=== PATIENT | female | born 1955 ===

== ENCOUNTER → 2020-08-31 | Outpatient (CLI) | payer OTHER ==
[2020-08-31 19:37] LABS: Source, Urine Clean Catch
[2020-08-31 19:41] LABS: Appearance, Urine Clear (Clear); Bilirubin, Urine Neg (Neg); Blood, Urine 1+ (Neg); Color, Urine Amber (P-Yellow); Glucose Qualitative, Urine 4+ (Neg); Ketones, Urine Neg (Neg); Leukocyte Esterase, Urine 2+ (Neg); Nitrite, Urine Pos (Neg); Protein, Urine Neg (Neg); Specific Gravity, Urine 1.015 (1.003-1.022); Urobilinogen, Urine 1+ (Normal)
[2020-08-31 19:53] LABS: Bacteria Mod /hpf; Red Blood Cells, Urine 0-2 /hpf (0-2); Squamous Epithelial Cells Rare /hpf (Few); White Blood Cells, Urine 25-50 /hpf (0-5)
== END | disposition home or self-care (01) ==
LOC: LAB SHORT 17:30 → LAB 17:30
PROVIDERS: Family Medicine
DX: R35.0 Frequency of micturition (principal)
CPT/HCPCS: 81001; 87077; 87086; 87186

== ENCOUNTER 2021-02-28 22:32 | Observation (INO) | payer OTHER ==
[~2021-02-28] VITALS: Ht 147.3 cm; Wt 85.2 kg
[2021-02-28] MEDS ORDERED: SITA25T2 PO (22:46)
[2021-02-28] MEDS ORDERED: GLIP10 PO (22:47)
[2021-02-28] MEDS ORDERED: NITR.4SL SL (22:47)
[2021-02-28] MEDS ORDERED: PRAV20 PO (22:47)
[2021-02-28] MEDS ORDERED: NEURONTIN300 MG PO (22:47)
[2021-02-28] MEDS ORDERED: ASPIR 8181 M1 PO (22:48)
[2021-02-28 23:29] LABS: BASOPHILS ABSOLUTE AUTO 0.08 K/mm3 (0.00-0.23); BASOPHILS PERCENT AUTO 1 % (0-2); EOSINOPHILS ABSOLUTE AUTO 0.26 K/mm3 (0.00-0.68); EOSINOPHILS PERCENT AUTO 2 % (0-6); Hematocrit 38.4 % (33.0-51.0); Hemoglobin 12.8 g/dL (11.5-16.0); IMMATURE GRAN ABSOLUTE AUTO 0.03 K/mm3 (0.00-0.10); IMMATURE GRAN PERCENT AUTO 0 % (0-1); LYMPHOCYTES ABSOLUTE AUTO 4.43 K/mm3 (0.84-5.20); LYMPHOCYTES PERCENT AUTO 37 % (21-46); MONOCYTES ABSOLUTE AUTO 0.67 K/mm3 (0.16-1.47); MONOCYTES PERCENT AUTO 6 % (4-13); Mean Corpuscular HGB 29.6 pg (26.0-34.0); Mean Corpuscular HGB Conc 33.3 g/dL (31.5-36.5); Mean Corpuscular Volume 89 fL (80-100); Mean Platelet Volume 9.4 fL (9.1-12.4); NEUTROPHILS ABSOLUTE AUTO 6.63 K/mm3 (1.96-9.15); NEUTROPHILS PERCENT AUTO 55 % (41-73); Platelet Count 244 K/mm3 (150-400); RDW Coefficient Variation 11.8 % (11.7-14.2); RDW Standard Deviation 38.2 fL (35.1-46.3); Red Blood Cell Count 4.33 M/mm3 (3.80-5.20)
[2021-02-28 23:46] LABS: Alanine Aminotransfer (ALT/SGP 22 U/L (12-78); Albumin/Globulin Ratio 1.1 (0.8-1.8); Alk Phos 110 U/L (50-136); Anion Gap 4 mmol/L (6-16); Aspartate Aminotrans (AST/SGOT 17 U/L (12-37); Bilirubin, Total 0.3 mg/dL (0.1-1.0); Blood Urea Nitrogen 28 mg/dL (8-24); Bun/Creatinine Ratio 28.7 (12.0-20.0); CO2, Blood 27 mmol/L (21-32); Chloride, Blood 106 mmol/L (98-108); Creatinine, Blood 0.98 mg/dL (0.40-1.00); Globulin, Blood 3.8 g/dL (2.2-4.0); Glomerular Filtration Rate >60 (60-); Glucose, Blood 105 mg/dL (70-99); Potassium, Blood 4.1 mmol/L (3.5-5.5); Sodium, Blood 137 mmol/L (136-145); Total Protein, Blood 7.8 g/dL (6.4-8.2); Troponin I <0.015 ng/mL (0.000-0.040)
--- NOTE | 2021-03-01 02:30 | NUR ---
RECEIVED REPORT FROM TROY ALVARES RN. PT TRANSPORTED TO MEDICAL FLOOR VIA W/C, AMBULATED SELF TO BED, STEADY GAIT. DENIES DIZZINESS, FEELINGS OF SYNCOPE. ORIENTED TO ROOM/UNIT, VS AND WT TAKEN. JEWEL BEARING POLISHER PLACED, HR TRENDING SINUS BRADYCARDIA, HR OF 47, PT ASYMPTOMATIC. BROUGHT PT ICE CHIPS. DENIES CP/PRESSURE/SOB AT THIS TIME. CALL LIGHT, POSSESSIONS IN REACH.
[2021-03-01 05:29] LABS: BASOPHILS ABSOLUTE AUTO 0.06 K/mm3 (0.00-0.23); BASOPHILS PERCENT AUTO 1 % (0-2); EOSINOPHILS ABSOLUTE AUTO 0.21 K/mm3 (0.00-0.68); EOSINOPHILS PERCENT AUTO 2 % (0-6); Hemoglobin 11.6 g/dL (11.5-16.0); IMMATURE GRAN ABSOLUTE AUTO 0.02 K/mm3 (0.00-0.10); IMMATURE GRAN PERCENT AUTO 0 % (0-1); LYMPHOCYTES ABSOLUTE AUTO 3.28 K/mm3 (0.84-5.20); LYMPHOCYTES PERCENT AUTO 37 % (21-46); MONOCYTES ABSOLUTE AUTO 0.49 K/mm3 (0.16-1.47); MONOCYTES PERCENT AUTO 6 % (4-13); Mean Corpuscular HGB Conc 34.1 g/dL (31.5-36.5); Mean Corpuscular Volume 88 fL (80-100); Mean Platelet Volume 9.1 fL (9.1-12.4); NEUTROPHILS ABSOLUTE AUTO 4.77 K/mm3 (1.96-9.15); NEUTROPHILS PERCENT AUTO 54 % (41-73); Platelet Count 196 K/mm3 (150-400); RDW Coefficient Variation 11.9 % (11.7-14.2); RDW Standard Deviation 38.3 fL (35.1-46.3); Red Blood Cell Count 3.87 M/mm3 (3.80-5.20); White Blood Cell Count 8.83 K/mm3 (4.00-11.30)
--- NOTE | 2021-03-01 05:31 | NUR ---
AGRICULTURAL RESEARCH TECHNICIAN SUMMARY PT RESTING, IN NO ACUTE DISTRESS. NO ACUTE CHANGES SINCE ARRIVAL TO MEDICAL FLOOR, VS REVIEWED,WNL. HR TRENDING SINUS BRADYCARDIA, HR 48 PER PARKING METER ATTENDANT. BP'S STABLE. NO C/O CP, PRESSURE, SOB. AWAITING STRESS TEST TODAY. CALL LIGHT AND POSSESSIONS IN REACH. WILL CONTINUE TO PROVIDE CARE AND REPORT OFF TO ONCOMING RN.
[2021-03-01 05:53] LABS: Anion Gap 4 mmol/L (6-16); Blood Urea Nitrogen 26 mg/dL (8-24); Bun/Creatinine Ratio 27.1 (12.0-20.0); CO2, Blood 27 mmol/L (21-32); Calcium, Blood 8.3 mg/dL (8.5-10.1); Chloride, Blood 106 mmol/L (98-108); Creatinine, Blood 0.96 mg/dL (0.40-1.00); Glomerular Filtration Rate >60 (60-); Glucose, Blood 106 mg/dL (70-99); Potassium, Blood 3.8 mmol/L (3.5-5.5); Sodium, Blood 137 mmol/L (136-145); Troponin I <0.015 ng/mL (0.000-0.040)
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
--- NOTE | 2021-03-01 13:51 | NUR ---
Spiritual care visit conducted. Many family members are present and supporting each other. I conduct a life review and provide prayer then step out as calls are being made and other family members are still arriving. I come back prior to extubation and from that time until TOD I provide encouragement, scripture reading, soft comforting guitar music and prayer (prayer after TOD). Family responds well and shows signs of being comforted.
--- NOTE | 2021-03-01 16:53 | NUR ---
ADMIT: 03/01/21 DISCHARGE: DX: CP CC: paolo OFEL[facility] CALL: pt at home (1wk with PCP/OFELIA) RESIDENCE: home CAREGIVER: Akua Forrester, Friend DX: chronic chest pain, HTN, anxiety, hyperlipidemia, see list DME: none CCM: none HOME HEALTH: none SUMMARY: Admit: 03/01/21 03/01/21- per chart review, pt is going to need stress test prior to discharge. This had not been completed by this afternoon. Pt can go home either Thu or Thursday depending on medically stable. -lylyw
--- NOTE | 2021-03-01 17:43 | NUR ---
SHIFT SUMMARY PT DENIED CHEST PAIN, STATES THERE IS A MILD PRESSURE AT TIMES. HAD STRESS TEST DONE THIS SHIFT, AWAITING RESULTS TO COME INTO COMPUTER. INDEP IN ROOM, CONTINENT IN BATHROOM. TELE SHOWING SINUS LUCAS. CALL LIGHT IN REACH, WCTM
[2021-03-01] MEDS ORDERED: SITA25T2 PO (18:32)
[2021-03-01] MEDS ORDERED: HYDCHL25 PO (18:35)
[2021-03-01] MEDS ORDERED: LISI20 PO (18:35)
--- NOTE | 2021-03-02 06:42 | NUR ---
SHIFT SUMMARY PT IS A 65 Y/O FEMALE, ADMITTED FOR CP. SHE IS A&O X 4, INDEPENDENT IN THE ROOM. PT WAS MEDICATED AT CHANGE OF SHIFT FOR A HEADACHE, WHICH WAS RESOLVED WITH PRN TYLENOL. PER TELE, HR WAS LOW IN THE 50S WHILE AWAKE, AND DOWN TO THE 40S WHILE SLEEPING. VITAL SIGNS OTHERWISE STABLE. PT DENIED ANY CHEST PAIN OR PRESSURE, SOB OR NAUSEA. NO ACUTE CHANGES IN PT CONDITION NOTED. WILL CONTINUE TO MONITOR AND TREAT PER EMAR UNTIL HAND OFF TO DAY SHIFT RN.
--- NOTE | 2021-03-02 12:16 | NUR ---
echocardiogram complete
--- NOTE | 2021-03-02 17:56 | NUR ---
DISCHARGE SUMMARY JADEN IS LEAVING BY CAR TO GO HOME. PIV REMOVED, PAPERWORK REVIEWED. NO NEW MEDS TO FAX TO PHARMACY. [facility] WILL CALL HER TO SCHEDULE F/U APPT AND GO OVER ECHO RESULTS ONCE THEY ARE IN THE COMPUTER.
== END 2021-03-02 18:07 | disposition home or self-care (01) ==
LOC: ER 22:32 → MEDS 22:33 → ER 03-01 00:56 → MEDS 03-01 02:40
PROVIDERS: Emergency Medicine; ADMIT Family Medicine
DX: R07.9 Chest pain, unspecified (principal); I10 Essential (primary) hypertension; E78.5 Hyperlipidemia, unspecified; I20.9 Angina pectoris, unspecified; E11.40 Type 2 diabetes mellitus with diabetic neuropathy, unspecified; R00.1 Bradycardia, unspecified; E66.9 Obesity, unspecified; Z68.37 Body mass index [BMI] 37.0-37.9, adult; Z79.84 Long term (current) use of oral hypoglycemic drugs
CPT/HCPCS: 36415; 71045; 78452; 80048; 80053; 82947; 83690; 83735; 84484; 85025; 93005; 93010; 93017; 93306; 96372; 99285-25; A9270; A9500; G0378; J0280; J1650; J1815; J2785

== ENCOUNTER 2021-05-26 13:07 | Observation (INO) | payer OTHER ==
[~2021-05-26] VITALS: Ht 147.3 cm; Wt 81.2 kg
[~2021-05-26 13:07] MED LIST: ASPIR 8181 M1 PO; GLIP10 PO; HYDCHL25 PO; LISI20 PO; NEURONTIN300 MG PO; NITR.4SL SL; PRAV20 PO; SITA25T2 PO
[2021-05-26 14:05] LABS: BASOPHILS ABSOLUTE AUTO 0.07 K/mm3 (0.00-0.23); BASOPHILS PERCENT AUTO 1 % (0-2); EOSINOPHILS PERCENT AUTO 2 % (0-6); Hematocrit 35.2 % (33.0-51.0); Hemoglobin 12.4 g/dL (11.5-16.0); IMMATURE GRAN ABSOLUTE AUTO 0.02 K/mm3 (0.00-0.10); IMMATURE GRAN PERCENT AUTO 0 % (0-1); LYMPHOCYTES PERCENT AUTO 32 % (21-46); MONOCYTES PERCENT AUTO 6 % (4-13); Mean Corpuscular HGB 30.8 pg (26.0-34.0); Mean Corpuscular HGB Conc 35.2 g/dL (31.5-36.5); Mean Corpuscular Volume 88 fL (80-100); Mean Platelet Volume 9.1 fL (9.1-12.4); NEUTROPHILS ABSOLUTE AUTO 4.86 K/mm3 (1.96-9.15); NEUTROPHILS PERCENT AUTO 58 % (41-73); Platelet Count 272 K/mm3 (150-400); RDW Coefficient Variation 12.2 % (11.7-14.2); RDW Standard Deviation 39.2 fL (35.1-46.3); Red Blood Cell Count 4.02 M/mm3 (3.80-5.20); White Blood Cell Count 8.35 K/mm3 (4.00-11.30)
[2021-05-26 14:26] LABS: Alanine Aminotransfer (ALT/SGP 23 U/L (12-78); Albumin, Blood 4.1 g/dL (3.4-5.0); Albumin/Globulin Ratio 1.1 (0.8-1.8); Alk Phos 88 U/L (50-136); Anion Gap 5 mmol/L (6-16); Aspartate Aminotrans (AST/SGOT 16 U/L (12-37); Bilirubin, Total 0.3 mg/dL (0.1-1.0); Blood Urea Nitrogen 25 mg/dL (8-24); Bun/Creatinine Ratio 25.4 (12.0-20.0); CO2, Blood 27 mmol/L (21-32); Calcium, Blood 9.7 mg/dL (8.5-10.1); Chloride, Blood 106 mmol/L (98-108); Creatinine, Blood 0.99 mg/dL (0.40-1.00); Globulin, Blood 3.9 g/dL (2.2-4.0); Glomerular Filtration Rate 56 (60-); Glucose, Blood 121 mg/dL (70-99); Sodium, Blood 138 mmol/L (136-145); Troponin I <0.015 ng/mL (0.000-0.040)
[2021-05-27 05:21] LABS: BASOPHILS ABSOLUTE AUTO 0.05 K/mm3 (0.00-0.23); BASOPHILS PERCENT AUTO 1 % (0-2); EOSINOPHILS ABSOLUTE AUTO 0.22 K/mm3 (0.00-0.68); EOSINOPHILS PERCENT AUTO 3 % (0-6); Hematocrit 32.1 % (33.0-51.0); Hemoglobin 10.7 g/dL (11.5-16.0); IMMATURE GRAN ABSOLUTE AUTO 0.03 K/mm3 (0.00-0.10); IMMATURE GRAN PERCENT AUTO 0 % (0-1); LYMPHOCYTES ABSOLUTE AUTO 2.81 K/mm3 (0.84-5.20); LYMPHOCYTES PERCENT AUTO 36 % (21-46); MONOCYTES ABSOLUTE AUTO 0.62 K/mm3 (0.16-1.47); MONOCYTES PERCENT AUTO 8 % (4-13); Mean Corpuscular HGB 30.2 pg (26.0-34.0); Mean Corpuscular HGB Conc 33.3 g/dL (31.5-36.5); Mean Corpuscular Volume 91 fL (80-100); Mean Platelet Volume 9.4 fL (9.1-12.4); NEUTROPHILS ABSOLUTE AUTO 4.19 K/mm3 (1.96-9.15); NEUTROPHILS PERCENT AUTO 53 % (41-73); Platelet Count 213 K/mm3 (150-400); RDW Coefficient Variation 12.3 % (11.7-14.2); RDW Standard Deviation 40.9 fL (35.1-46.3); Red Blood Cell Count 3.54 M/mm3 (3.80-5.20); White Blood Cell Count 7.92 K/mm3 (4.00-11.30)
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
[2021-05-27 06:03] LABS: Albumin, Blood 3.1 g/dL (3.4-5.0); Bilirubin, Total 0.2 mg/dL (0.1-1.0); Bun/Creatinine Ratio 25.2 (12.0-20.0); Calcium, Blood 8.6 mg/dL (8.5-10.1); Creatinine, Blood 1.15 mg/dL (0.40-1.00); Globulin, Blood 3.2 g/dL (2.2-4.0); Potassium, Blood 4.1 mmol/L (3.5-5.5); Total Protein, Blood 6.3 g/dL (6.4-8.2)
--- NOTE | 2021-05-28 04:59 | NUR ---
SHIFT SUMMARY PT MONITORED VIA TELEMETRY IN SINUS BRADYCARDIA, FROM 44 - MID 50'S. VSS, PT REMAINED ASYMPTOMATIC. AT 1920 ON 05/27/21, DR. NEWTON PRESENT IN PT ROOM DISCUSSING PLANS FOR ORTHOSTATIC BP IN THE AM AND POSSIBLE D/C WITH A 14 DAY HOLTER MONITOR AN OUTPATIENT. JADEN WAS ANXIOUS AND TEARFUL WHEN SPEAKING ON THE PHONE WITH HER FAMILY. SHE REPORTS THAT SHE IS FEARFUL THAT THIS EPISODE WILL INTERFERE WITH HER PLANS TO HAVE A GASTRIC SLEEVE PLACED. WILL CONTINUE TO MONITOR.
[2021-05-28 13:45] LABS: BASOPHILS ABSOLUTE AUTO 0.07 K/mm3 (0.00-0.23); BASOPHILS PERCENT AUTO 1 % (0-2); EOSINOPHILS ABSOLUTE AUTO 0.24 K/mm3 (0.00-0.68); EOSINOPHILS PERCENT AUTO 3 % (0-6); Hematocrit 34.3 % (33.0-51.0); Hemoglobin 11.7 g/dL (11.5-16.0); IMMATURE GRAN ABSOLUTE AUTO 0.03 K/mm3 (0.00-0.10); IMMATURE GRAN PERCENT AUTO 0 % (0-1); LYMPHOCYTES PERCENT AUTO 32 % (21-46); MONOCYTES ABSOLUTE AUTO 0.56 K/mm3 (0.16-1.47); MONOCYTES PERCENT AUTO 6 % (4-13); Mean Corpuscular HGB 30.4 pg (26.0-34.0); Mean Corpuscular HGB Conc 34.1 g/dL (31.5-36.5); Mean Corpuscular Volume 89 fL (80-100); Mean Platelet Volume 9.2 fL (9.1-12.4); NEUTROPHILS PERCENT AUTO 58 % (41-73); Platelet Count 241 K/mm3 (150-400); RDW Coefficient Variation 12.3 % (11.7-14.2); RDW Standard Deviation 39.9 fL (35.1-46.3); Red Blood Cell Count 3.85 M/mm3 (3.80-5.20)
[2021-05-28 14:03] LABS: Anion Gap 5 mmol/L (6-16); Blood Urea Nitrogen 18 mg/dL (8-24); Bun/Creatinine Ratio 21.6 (12.0-20.0); CO2, Blood 28 mmol/L (21-32); Calcium, Blood 9.3 mg/dL (8.5-10.1); Chloride, Blood 105 mmol/L (98-108); Creatinine, Blood 0.83 mg/dL (0.40-1.00); Glomerular Filtration Rate >60 (60-); Glucose, Blood 116 mg/dL (70-99); Potassium, Blood 4.2 mmol/L (3.5-5.5); Sodium, Blood 138 mmol/L (136-145)
[2021-05-28] MEDS ORDERED: ASPI81CH PO (14:57)
--- NOTE | 2021-05-28 16:51 | NUR ---
Progress Update 05/28/21: Per chart review, pt. appropriate for discharge today. She will need a zio patch prior to discharge. Cardiology has placed zio patch. Pt. has a friend providing transportation home today. The friend will also bean picker machine operator her medication. Pt. denied any safety concerns or barriers to discharge. She asked who to contact if she has questions or concerns post discharge and she was given the [facility] phone number. Advised that she can call 18/05 if urgent need. Pt. stated her understanding. No further questions or concerns. Scheduled for hospital follow-up appointment on 05/30/[address] Pratt. She initially requested Dr. Maciel or Dr. Chu. No available appointments this week. Pt. needing to follow-up this week due to other appointments scheduled next week. She is agreeable to seeing Dr. Pratt. Progress Update 05/27/21: Pt. was thought to have transferred care based on note in EMR. Initially assigned to hospitalist group. Pt. expressed that she is still an [facility] pt. and would like to see Dr. Chu in the hospital. Dr. Chu agreeable to this.
== END 2021-05-28 15:40 | disposition home or self-care (01) ==
LOC: ER 13:07 → MEDS 13:08
PROVIDERS: Internal Medicine; Nurse Practitioner Acute Care; Physician Assistant; ADMIT Internal Medicine
DX: G45.3 Amaurosis fugax (principal); R00.1 Bradycardia, unspecified; E11.42 Type 2 diabetes mellitus with diabetic polyneuropathy; I10 Essential (primary) hypertension; E78.00 Pure hypercholesterolemia, unspecified; E66.01 Morbid (severe) obesity due to excess calories; Z79.84 Long term (current) use of oral hypoglycemic drugs; Z79.82 Long term (current) use of aspirin; Z88.5 Allergy status to narcotic agent; Z68.37 Body mass index [BMI] 37.0-37.9, adult
CPT/HCPCS: 36415; 70450; 70496; 70498; 71046; 80048; 80053; 82947; 83690; 83880; 84484; 85025; 93005; 93010; 93246; 99285-25; A9270; G0378; J7030; Q9967

== ENCOUNTER → 2022-05-02 | Outpatient (CLI) | payer OTHER ==
[~2022-05-02] MED LIST changes: +ASPI81CH PO
== END ==
LOC: LAB SHORT 10:31 → LAB 10:31
DX: E11.9 Type 2 diabetes mellitus without complications (principal)
CPT/HCPCS: 82043

== ENCOUNTER 2022-06-21 13:31 | Emergency (ER) | payer OTHER ==
[~2022-06-21] VITALS: Ht 147.3 cm; Wt 55.3 kg
[2022-06-21 14:35] LABS: BASOPHILS ABSOLUTE AUTO 0.06 K/mm3 (0.00-0.23); BASOPHILS PERCENT AUTO 1 % (0-2); EOSINOPHILS ABSOLUTE AUTO 0.14 K/mm3 (0.00-0.68); EOSINOPHILS PERCENT AUTO 2 % (0-6); Hematocrit 35.7 % (33.0-51.0); Hemoglobin 12.3 g/dL (11.5-16.0); IMMATURE GRAN ABSOLUTE AUTO 0.01 K/mm3 (0.00-0.10); IMMATURE GRAN PERCENT AUTO 0 % (0-1); LYMPHOCYTES PERCENT AUTO 33 % (21-46); MONOCYTES ABSOLUTE AUTO 0.35 K/mm3 (0.16-1.47); MONOCYTES PERCENT AUTO 6 % (4-13); Mean Corpuscular HGB 30.9 pg (26.0-34.0); Mean Corpuscular HGB Conc 34.5 g/dL (31.5-36.5); Mean Corpuscular Volume 90 fL (80-100); Mean Platelet Volume 9.6 fL (9.1-12.4); NEUTROPHILS PERCENT AUTO 58 % (41-73); Platelet Count 198 K/mm3 (150-400); RDW Standard Deviation 39.4 fL (35.1-46.3); Red Blood Cell Count 3.98 M/mm3 (3.80-5.20); White Blood Cell Count 6.16 K/mm3 (4.00-11.30)
[2022-06-21 14:45] LABS: Albumin, Blood 4.1 g/dL (3.4-5.0); Albumin/Globulin Ratio 1.3 (0.8-1.8); Bilirubin, Total 0.4 mg/dL (0.1-1.0); Bun/Creatinine Ratio 31.2 (12.0-20.0); Calcium, Blood 9.7 mg/dL (8.5-10.1); Creatinine, Blood 0.67 mg/dL (0.40-1.00); Globulin, Blood 3.2 g/dL (2.2-4.0); Potassium, Blood 3.9 mmol/L (3.5-5.5); Total Protein, Blood 7.3 g/dL (6.4-8.2)
[2022-06-21 18:11] LABS: Source, Urine Clean Catch
[2022-06-21 18:15] LABS: Appearance, Urine Clear (Clear); Bilirubin, Urine Neg (Neg); Blood, Urine Neg (Neg); Color, Urine Yellow (P-Yellow); Glucose Qualitative, Urine Neg (Neg); Ketones, Urine Neg (Neg); Leukocyte Esterase, Urine Neg (Neg); Nitrite, Urine Neg (Neg); Protein, Urine Neg (Neg); Specific Gravity, Urine 1.025 (1.003-1.022); Urobilinogen, Urine NORM (Normal)
== END 2022-06-21 19:40 | disposition home or self-care (01) ==
LOC: ER 13:31
PROVIDERS: Physician Assistant
DX: R42 Dizziness and giddiness (principal); E11.9 Type 2 diabetes mellitus without complications; I10 Essential (primary) hypertension; Z79.899 Other long term (current) drug therapy; Z79.82 Long term (current) use of aspirin; Z88.5 Allergy status to narcotic agent; Z79.84 Long term (current) use of oral hypoglycemic drugs
CPT/HCPCS: 36415; 71046; 80053; 81003; 83690; 83880; 84484; 85025; 93005; 93010

== ENCOUNTER → 2022-08-30 | Outpatient (CLI) | payer OTHER | END | disposition home or self-care (01) | LOC: LAB SHORT 15:24 → LAB 15:24 | DX: R82.90 Unspecified abnormal findings in urine (principal) | CPT/HCPCS: 87077; 87086; 87186 ==

== ENCOUNTER → 2022-12-17 | Outpatient (CLI) | payer OTHER ==
[2022-12-18 10:22] LABS: Candida species (DNA Probe) Negative (NEGATIVE); G. vaginalis (DNA Probe) Positive (NEGATIVE); T. vaginalis (DNA Probe) Negative (NEGATIVE)
== END ==
LOC: LAB SHORT 14:10 → LAB 14:10
PROVIDERS: Family Medicine
DX: Z12.4 Encounter for screening for malignant neoplasm of cervix (principal); N89.8 Other specified noninflammatory disorders of vagina
CPT/HCPCS: 87480; 87510; 87660

== ENCOUNTER 2025-01-30 11:38 | Day surgery (SDC) | payer OTHER ==
[~2025-01-30] VITALS: Ht 147.3 cm; Wt 59.6 kg
[~2025-01-30 11:38] MED LIST changes: +GLIP5 PO; +MULTI-VITAMIN1 EAC2 PO; +NS 500 ML IV ONE; +PANT40 PO; +PRAVASTATIN SOD40 MG PO; +Prinivil10 MG PO; +ZOLOFT50 MG PO
[2025-01-30] MEDS ORDERED: Midazolam HCl 1MG / ML 2ML Vial ONE (11:46)
[2025-01-30] MEDS ORDERED: propofoL 20 ML IV ONE (11:46)
[2025-01-30] MEDS ORDERED: NS 500 ML IV ONE (12:18)
[2025-01-30] MEDS ORDERED: CeFAZolin Sodium 1000 mg Vial ONE (12:22)
[2025-01-30] MEDS ORDERED: Lidocaine 1%-Epineph 1:200000 30 ML SDV INJ ONE (12:28)
[2025-01-30 12:57] VITALS: BP 124/53
== END 2025-01-30 13:22 | disposition home or self-care (01) ==
LOC: ORSCSDS 11:38
PROVIDERS: Orthopaedic Surgery
PROC: 0LN70ZZ Release Right Hand Tendon, Open Approach (ICD-10-PCS; principal; 2025-01-30 13:00)
DX: M65.321 Trigger finger, right index finger (principal); M65.331 Trigger finger, right middle finger; M65.311 Trigger thumb, right thumb; M65.341 Trigger finger, right ring finger; M65.351 Trigger finger, right little finger; I10 Essential (primary) hypertension; I25.2 Old myocardial infarction; K21.9 Gastro-esophageal reflux disease without esophagitis; E11.9 Type 2 diabetes mellitus without complications; Z79.899 Other long term (current) drug therapy
CPT/HCPCS: 82947; J0690; J2250; J2704; J7040